=== PATIENT | male | born 1985 | race Caucasian/White ===

== ENCOUNTER 2020-06-02 16:00 | Emergency (ER) | payer OTHER, SELFPAY ==
--- NOTE | ~2020-06-02 | XR_ITS ---
EXAMINATION: XR hip LT min 2V DATE: 06/02/2020 16:23 INDICATION: Left hip pain TECHNIQUE: Anteroposterior and frog-leg lateral views of the left hip were obtained. COMPARISON: None. FINDINGS: Bone alignment is normal. No fracture. Left hip joint space is normal. Soft tissues are unremarkable. IMPRESSION: 1. Negative left hip radiographs. Reviewed, dictated and finalized at location A.
[2020-06-02 16:02] VITALS: BP 163/102; PULSE 99; RESP 20; TEMP 36.2; O2SAT 100
[2020-06-02] MEDS: KETOROLAC 30 MG/ML VIAL (*BKC) 60 MG IM (17:48)
--- NOTE | 2020-06-02 18:06 | ED.LOWEXIN ---
HPI - Extremity Injury (Lower) General Chief Complaint: Extremity Injury, Lower Stated Complaint: sciatica Time Seen by Provider: 06/02/20 16:14 Source: patient Mode of arrival: ambulatory Limitations: no limitations History of Present Illness HPI Narrative: Patient presents with chief complaint of pain to the left hip that radiates into his left knee that began approximately 1 week ago after twisting and bending down to reach something. Patient denies direct trauma or inability to ambulate. Patient states that he noticed that the discomfort is worse when waking up in the morning or if he has been extremely active. Patient denies loss of sensation or motor function to his left leg. Patient states sometimes there is a cramp-like sensation to the muscle. So far he has not tried anything to alleviate his symptoms. Patient states that he has contacted his primary care for follow-up appointment but he needed something today to alleviate the discomfort. Related Data Allergies Allergy/AdvReac Type Severity Reaction Status Date / Time No Known Allergies Allergy Verified 06/02/20 16:09 Review of Systems Review of Systems: Narrative: CONSTITUTIONAL: Denies fever, chills, or sweats. EYES: Denies visual changes, redness, or discharge. ENT: Denies rhinorrhea, congestion, sore throat, or otalgia. CARDIOVASCULAR: Denies chest pain, palpitations, or edema. RESPIRATORY: Denies cough or dyspnea. GASTROINTESTINAL: Denies abdominal pain, nausea, vomiting, or diarrhea. GENITOURINARY: Denies dysuria or hematuria. SKIN: Denies rash or itching. MUSCULOSKELETAL: Reports radiating left hip pain denies back pain, joint pain, or myalgia. NEUROLOGIC: Denies headache, numbness, dizziness, or weakness. PSYCHIATRIC: Denies anxiety or depression. Exam Narrative: Exam Narrative: GENERAL: Well-appearing, well-nourished, and in no acute distress. Patient morbidly obese. HEAD: Normocephalic, atraumatic. EYES: PERRLA and EOMI. ENT: Nares clear, no rhinorrhea or epistaxis. Mucous membranes moist. Oropharynx without tonsillar hypertrophy exudate or other lesions NECK: Supple. No adenopathy or masses. CHEST: Clear to auscultation. No respiratory distress. No tachypnea HEART: Regular rate and rhythm. BACK: Nontender to palpation range of motion intact. EXTREMITIES: Mild discomfort with palpation of left anterior thigh and groin. Normal range of motion. Sensation and cap refill intact SKIN: Warm, dry, no rash. NEURO: No focal deficits. Alert and oriented x3. PSYCH: Normal mood and affect. Course Vital Signs Vital signs: Vital Signs Temperature 97.1 F L 06/02/20 16:02 Pulse Rate 99 06/02/20 16:02 Respiratory Rate 20 06/02/20 16:02 Blood Pressure 163/102 H 06/02/20 16:02 Pulse Oximetry 100 06/02/20 16:02 Temperature 97.1 F L 06/02/20 16:02 Pulse Rate 98 06/02/20 18:39 Respiratory Rate 22 H 06/02/20 18:39 Blood Pressure 155/106 H 06/02/20 18:39 Pulse Oximetry 99 06/02/20 18:39 MDM - Extremity Injury (Lower) MDM Narrative Medical decision making narrative: Discussed with the patient the need to follow-up primary care for reevaluation as he has had some elevated blood pressures today but denies a known history of hypertension. Patient states that he has a follow-up appointment with his primary care provider and will be calling to see if he can be moved forward tomorrow. Patient x-rays negative. Patient will be prescribed naproxen and muscle relaxant as he describes spasm-like discomfort to the area. Patient instructed to follow-up with his primary care for further evaluation and to get symptoms. Patient is urged to return to emergency department if he has any emergent symptoms. Differential Diagnosis Differential diagnosis: Likely other (Hip fracture, sprain, strain with radiculopathy) Imaging Data Radiologist's impression: ITS Impressions Hip X-Ray 06/02/20 16:32 IMPRESSION: 1. Negative left hip radiographs.
[2020-06-02 18:39] VITALS: BP 155/106; PULSE 98; RESP 22; O2SAT 99
== END 2020-06-02 18:40 | disposition home or self-care (01) ==
PROVIDERS: Emergency Provider Emergency Medicine
DX: M25.552 Pain in left hip (principal)
CPT/HCPCS: 73502; 96372; 99283; J1885